=== PATIENT | female | born 1950 | race Caucasian/White ===

== ENCOUNTER 2018-10-06 11:54 | Inpatient (IN) | payer MEDICARE, OTHER, MEDICAID ==
[2018-10-06 12:50] LABS: ADD MAN DIFF? NO
[2018-10-06 13:02] LABS: WHITE BLOOD COUNT 12.8 10^3/ul (4.8-10.8)
[2018-10-06 13:02] LABS: BASOPHIL # 0.1 10^3/ul (0.0-0.1); BASOPHILS % 0.5 % (0.0-2.0); EOSINOPHILS # 0.1 10^3/ul (0.0-0.5); EOSINOPHILS % 0.9 % (0.0-7.0); HEMATOCRIT 38.2 % (37.0-47.0); HEMOGLOBIN 12.4 g/dl (12.0-16.0); LYMPHOCYTES # 1.6 10^3/ul (0.8-2.9); LYMPHOCYTES % 12.7 % (15.0-51.0); MEAN CORPUSCULAR HEMOGLOBIN 32.7 pg (29.0-33.0); MEAN CORPUSCULAR HGB CONC 32.5 g/dl (32.0-37.0); MEAN CORPUSCULAR VOLUME 100.8 fl (82.0-101.0); MONOCYTE # 1.2 10^3/ul (0.3-0.9); MONOCYTES % 9.1 % (0.0-11.0); NEUTROPHIL # 9.8 10^3/ul (1.6-7.5); NEUTROPHILS % 76.5 % (39.0-77.0); PLATELET COUNT 223 10^3/UL (140-415); RED BLOOD COUNT 3.79 10^6/ul (4.20-5.40); RED CELL DISTRIBUTION WIDTH 13.2 % (11.5-14.5)
[2018-10-06 13:06] LABS: ADD UMIC YES; UR AMORPHOUS CRYSTAL FEW /HPF (NONE SEEN); UR ASCORBIC ACID NEGATIVE (NEGATIVE); UR BACTERIA FEW /HPF (NONE SEEN); UR BILIRUBIN (Dip) NEGATIVE (NEGATIVE); UR BLOOD (Dip) 2+ mg/dL (NEGATIVE); UR CLARITY CLOUDY (CLEAR); UR COLOR YELLOW (YELLOW); UR GLUCOSE (Dip) NEGATIVE (NEGATIVE); UR KETONES (Dip) NEGATIVE (NEGATIVE); UR LEUKOCYTE ESTERASE (Dip) 3+ Leu/ul (NEGATIVE); UR NITRITE (Dip) POSITIVE (NEGATIVE); UR RBC 18 /HPF (0-5); UR SPECIFIC GRAVITY (Dip) 1.011 (1.003-1.030); UR TOTAL PROTEIN (Dip) NEGATIVE (NEGATIVE); UR UROBILINOGEN (Dip) NEGATIVE (NEGATIVE); UR WBC 41 /HPF (0-5)
[2018-10-06 13:17] LABS: ANION GAP 13 (5-13); BLOOD UREA NITROGEN 10 mg/dl (7-20); CALCIUM 9.4 mg/dl (8.4-10.2); CARBON DIOXIDE 27 mmol/L (21-31); CHLORIDE 93 mmol/L (97-110); Estimated GFR > 60 mL/min (>60); GLUCOSE 106 mg/dl (70-220); POTASSIUM 4.6 mmol/L (3.5-5.1); SODIUM 133 mmol/L (135-144)
[2018-10-06] MEDS: CEFTRIAXONE 1 GM/50 ML (PMX) 50 ML IVPB (14:28)
[2018-10-06] MEDS ORDERED: ACETAMINOPHEN 325 MG TAB PO ×2 (14:30→18:00)
[2018-10-06] MEDS ORDERED: ONDANSETRON 4 MG INJ IV (14:30)
[2018-10-06] MEDS: VANCOMYCIN 1 GM (PMX) 250 ML IVPB (15:48)
[2018-10-06] MEDS ORDERED: morphine 4 MG/ML VIAL IV (18:00)
[2018-10-06] MEDS ORDERED: TIZANIDINE 4 MG TAB PO (18:00)
[2018-10-06] MEDS ORDERED: AL HYDROX/MG HYDROX/SIMETH 30 ML CUP PO (18:00)
[2018-10-06] MEDS ORDERED: NACL 0.9% 3 ML SYG IV (18:00)
[2018-10-06] MEDS ORDERED: DOCUSATE SODIUM 100 MG CAP PO (18:00)
[2018-10-06] MEDS ORDERED: VANCOMYCIN IV PER PHARMACY XX (18:00)
[2018-10-06] MEDS ORDERED: ZOLPIDEM 5 MG TAB PO (18:00)
[2018-10-06] MEDS ORDERED: CRANBERRY EXTRACT 450 MG PO (21:00)
[2018-10-06] MEDS ORDERED: LIFITEGRAST OP (21:00)
[2018-10-06] MEDS: SOD CHLORIDE 0.9% 1,000 ML IV (21:01)
[2018-10-06] MEDS: traZODone 50 MG TAB PO (21:03)
[2018-10-06] MEDS: PRIMIDONE 250 MG TAB PO (21:03)
[2018-10-06] MEDS: DICYCLOMINE 10 MG CAP PO (21:03)
[2018-10-06] MEDS: SODIUM CHLORIDE 1 GM TAB PO (21:03)
[2018-10-06] MEDS: METOPROLOL 50 MG TAB PO (21:04)
[2018-10-06] MEDS: GABAPENTIN 400 MG CAP PO (21:04)
[2018-10-06] MEDS: HEPARIN 5,000 UNIT/1 ML VIAL SC (21:12)
[2018-10-06] MEDS: LATANOPROST 0.005% 2.5 ML OPH BOTH EYES (21:14)
[2018-10-06] MEDS: ACETAMINOPHEN 325 MG TAB PO (21:17)
[2018-10-07] MEDS: ACETAMINOPHEN 325 MG TAB PO ×3 (03:53→17:51)
[2018-10-07 05:27] LABS: ADD MAN DIFF? NO
[2018-10-07 05:37] LABS: BASOPHIL # 0.1 10^3/ul (0.0-0.1); BASOPHILS % 0.6 % (0.0-2.0); EOSINOPHILS # 0.1 10^3/ul (0.0-0.5); EOSINOPHILS % 1.4 % (0.0-7.0); HEMATOCRIT 32.3 % (37.0-47.0); HEMOGLOBIN 10.8 g/dl (12.0-16.0); LYMPHOCYTES # 2.1 10^3/ul (0.8-2.9); LYMPHOCYTES % 25.3 % (15.0-51.0); MEAN CORPUSCULAR HEMOGLOBIN 32.8 pg (29.0-33.0); MEAN CORPUSCULAR HGB CONC 33.4 g/dl (32.0-37.0); MEAN CORPUSCULAR VOLUME 98.2 fl (82.0-101.0); MEAN PLATELET VOLUME 9.1 fl (7.4-10.4); MONOCYTE # 0.8 10^3/ul (0.3-0.9); MONOCYTES % 10.1 % (0.0-11.0); NEUTROPHIL # 5.1 10^3/ul (1.6-7.5); NEUTROPHILS % 62.4 % (39.0-77.0); PLATELET COUNT 232 10^3/UL (140-415); RED BLOOD COUNT 3.29 10^6/ul (4.20-5.40); RED CELL DISTRIBUTION WIDTH 13.2 % (11.5-14.5)
[2018-10-07 05:37] LABS: WHITE BLOOD COUNT 8.1 10^3/ul (4.8-10.8)
[2018-10-07 06:13] LABS: ANION GAP 12 (5-13); BLOOD UREA NITROGEN 10 mg/dl (7-20); CALCIUM 8.8 mg/dl (8.4-10.2); CARBON DIOXIDE 29 mmol/L (21-31); CHLORIDE 94 mmol/L (97-110); CREATININE 0.28 mg/dl (0.44-1.00); Estimated GFR > 60 mL/min (>60); GLUCOSE 110 mg/dl (70-220); MAGNESIUM 1.7 mg/dl (1.7-2.5); PHOSPHORUS 3.2 mg/dl (2.5-4.9); POTASSIUM 3.6 mmol/L (3.5-5.1); SODIUM 135 mmol/L (135-144)
[2018-10-07 07:23] LABS: HEMOGLOBIN A1C 5.2 % (0-5.9)
[2018-10-07] MEDS: VANCOMYCIN 1 GM 250 ML IVPB (09:55)
[2018-10-07] MEDS: MULTIVITAMINS THERAPEUTIC TAB PO (09:56)
[2018-10-07] MEDS: PRIMIDONE 250 MG TAB PO ×2 (09:56→21:07)
[2018-10-07] MEDS: ZINC SULFATE 220 MG CAP PO (09:56)
[2018-10-07] MEDS: SODIUM CHLORIDE 1 GM TAB PO ×2 (09:56→21:07)
[2018-10-07] MEDS: ASCORBIC ACID 500 MG TAB PO (09:56)
[2018-10-07] MEDS: DICYCLOMINE 10 MG CAP PO ×2 (09:56→21:07)
[2018-10-07] MEDS: METOCLOPRAMIDE 5 MG TAB PO ×3 (09:56→17:48)
[2018-10-07] MEDS: BUSPIRONE 5 MG TAB PO (09:56)
[2018-10-07] MEDS: GABAPENTIN 400 MG CAP PO ×3 (09:56→21:06)
[2018-10-07] MEDS: HEPARIN 5,000 UNIT/1 ML VIAL SC ×2 (09:58→21:09)
[2018-10-07] MEDS: PANTOPRAZOLE (EC) 40 MG TAB PO (10:02)
[2018-10-07] MEDS: CALCIUM CARBONATE 1.25 GM TAB PO (10:02)
[2018-10-07] MEDS: METOPROLOL 50 MG TAB PO ×2 (10:03→21:07)
[2018-10-07] MEDS: SOD CHLORIDE 0.9% 1,000 ML IV (10:03)
[2018-10-07] MEDS: CEFTRIAXONE 1 GM/50 ML (PMX) 50 ML IVPB (14:59)
[2018-10-07] MEDS: SODIUM HYPOCHLORITE (1/40) 1 APPLIC BTL IRR ×2 (14:59→21:08)
[2018-10-07] MEDS: CEFEPIME 1GM/50 ML (PMX) 50 ML IVPB (21:06)
[2018-10-07] MEDS: traZODone 50 MG TAB PO (21:06)
[2018-10-07] MEDS: LATANOPROST 0.005% 2.5 ML OPH BOTH EYES (21:07)
[2018-10-08] MEDS: SOD CHLORIDE 0.9% 1,000 ML IV ×2 (02:12→22:01)
[2018-10-08] MEDS: ACETAMINOPHEN 325 MG TAB PO (02:12)
[2018-10-08] MEDS: morphine LIQ (10 MG/5 ML) CUP PO ×3 (04:18→21:25)
[2018-10-08] MEDS: DICYCLOMINE 10 MG CAP PO ×2 (08:39→21:23)
[2018-10-08] MEDS: SODIUM CHLORIDE 1 GM TAB PO ×2 (08:39→21:23)
[2018-10-08] MEDS: GABAPENTIN 400 MG CAP PO ×3 (08:39→21:24)
[2018-10-08] MEDS: METOCLOPRAMIDE 5 MG TAB PO ×3 (08:40→17:06)
[2018-10-08] MEDS: ASCORBIC ACID 500 MG TAB PO (08:40)
[2018-10-08] MEDS: BUSPIRONE 5 MG TAB PO (08:40)
[2018-10-08] MEDS: MULTIVITAMINS THERAPEUTIC TAB PO (08:40)
[2018-10-08] MEDS: METOPROLOL 50 MG TAB PO ×2 (08:40→21:33)
[2018-10-08] MEDS: CALCIUM CARBONATE 1.25 GM TAB PO (08:40)
[2018-10-08] MEDS: PRIMIDONE 250 MG TAB PO ×2 (08:40→21:33)
[2018-10-08] MEDS: ZINC SULFATE 220 MG CAP PO (08:40)
[2018-10-08] MEDS: SODIUM HYPOCHLORITE (1/40) 1 APPLIC BTL IRR ×2 (08:42→21:34)
[2018-10-08] MEDS: PANTOPRAZOLE (EC) 40 MG TAB PO (08:42)
[2018-10-08] MEDS: ONDANSETRON 4 MG INJ IV (09:26)
[2018-10-08] MEDS: CEFEPIME 1GM/50 ML (PMX) 50 ML IVPB ×2 (09:26→21:22)
[2018-10-08] MEDS: HEPARIN 5,000 UNIT/1 ML VIAL SC ×2 (09:27→21:38)
[2018-10-08] MEDS: VANCOMYCIN 1 GM 250 ML IVPB (10:28)
[2018-10-08] MEDS: SILVER NITRATE SWAB TOP (12:40)
[2018-10-08] MEDS: LIDOCAINE 2%/EPI (MDV) 20ML INJ INJ (12:40)
[2018-10-08] MEDS: traZODone 50 MG TAB PO (21:23)
[2018-10-09] MEDS: LATANOPROST 0.005% 2.5 ML OPH BOTH EYES ×2 (00:07→20:47)
[2018-10-09] MEDS: morphine LIQ (10 MG/5 ML) CUP PO ×5 (01:28→20:55)
[2018-10-09] MEDS: ONDANSETRON 4 MG INJ IV ×2 (02:46→10:48)
[2018-10-09 06:05] LABS: ADD MAN DIFF? NO
[2018-10-09 06:13] LABS: BASOPHILS % 0.7 % (0.0-2.0); EOSINOPHILS # 0.2 10^3/ul (0.0-0.5); EOSINOPHILS % 4.1 % (0.0-7.0); HEMATOCRIT 30.1 % (37.0-47.0); LYMPHOCYTES # 1.4 10^3/ul (0.8-2.9); LYMPHOCYTES % 24.3 % (15.0-51.0); MEAN CORPUSCULAR HEMOGLOBIN 32.7 pg (29.0-33.0); MEAN CORPUSCULAR HGB CONC 33.2 g/dl (32.0-37.0); MEAN CORPUSCULAR VOLUME 98.4 fl (82.0-101.0); MEAN PLATELET VOLUME 8.8 fl (7.4-10.4); MONOCYTE # 0.6 10^3/ul (0.3-0.9); MONOCYTES % 10.2 % (0.0-11.0); NEUTROPHIL # 3.4 10^3/ul (1.6-7.5); NEUTROPHILS % 60.3 % (39.0-77.0); PLATELET COUNT 223 10^3/UL (140-415); RED BLOOD COUNT 3.06 10^6/ul (4.20-5.40)
[2018-10-09 06:13] LABS: WHITE BLOOD COUNT 5.7 10^3/ul (4.8-10.8)
[2018-10-09] MEDS: METOCLOPRAMIDE 5 MG TAB PO ×3 (06:13→17:22)
[2018-10-09] MEDS: PANTOPRAZOLE (EC) 40 MG TAB PO (06:14)
[2018-10-09 06:35] LABS: ANION GAP 2 (5-13); BLOOD UREA NITROGEN 4 mg/dl (7-20); CALCIUM 8.7 mg/dl (8.4-10.2); CARBON DIOXIDE 27 mmol/L (21-31); CHLORIDE 107 mmol/L (97-110); CREATININE 0.29 mg/dl (0.44-1.00); Estimated GFR > 60 mL/min (>60); GLUCOSE 112 mg/dl (70-220); POTASSIUM 3.8 mmol/L (3.5-5.1); SODIUM 136 mmol/L (135-144)
[2018-10-09] MEDS: GABAPENTIN 400 MG CAP PO ×3 (08:40→20:48)
[2018-10-09] MEDS: DICYCLOMINE 10 MG CAP PO ×2 (08:40→20:47)
[2018-10-09] MEDS: CEFEPIME 1GM/50 ML (PMX) 50 ML IVPB ×2 (08:40→20:48)
[2018-10-09] MEDS: SODIUM CHLORIDE 1 GM TAB PO ×2 (08:40→20:48)
[2018-10-09] MEDS: METOPROLOL 50 MG TAB PO ×2 (08:40→20:49)
[2018-10-09] MEDS: PRIMIDONE 250 MG TAB PO ×2 (08:40→20:48)
[2018-10-09] MEDS: BUSPIRONE 5 MG TAB PO (08:40)
[2018-10-09] MEDS: HEPARIN 5,000 UNIT/1 ML VIAL SC ×2 (08:43→20:52)
[2018-10-09 10:14] LABS: VANCOMYCIN,TROUGH 6.6 ug/ml (10.0-20.0)
[2018-10-09] MEDS: VANCOMYCIN 1 GM 250 ML IVPB (10:36)
[2018-10-09] MEDS: MULTIVITAMINS THERAPEUTIC TAB PO (12:31)
[2018-10-09] MEDS: ASCORBIC ACID 500 MG TAB PO (12:31)
[2018-10-09] MEDS: CALCIUM CARBONATE 1.25 GM TAB PO (12:31)
[2018-10-09] MEDS: ZINC SULFATE 220 MG CAP PO (12:31)
[2018-10-09] MEDS: SOD CHLORIDE 0.9% 1,000 ML IV ×2 (12:34→17:28)
[2018-10-09] MEDS: SODIUM HYPOCHLORITE (1/40) 1 APPLIC BTL IRR ×2 (13:06→20:55)
[2018-10-09] MEDS: DOXYCYCLINE 100 MG TAB PO ×2 (17:22→23:31)
[2018-10-09] MEDS: HYDROCODONE/APAP (5/325) TAB PO (17:24)
[2018-10-09] MEDS: traZODone 50 MG TAB PO (20:47)
[2018-10-09] MEDS ORDERED: VANCOMYCIN 750 MG (PMX) 250 ML IVPB (22:00)
[2018-10-10] MEDS: morphine LIQ (10 MG/5 ML) CUP PO ×5 (02:16→19:56)
[2018-10-10] MEDS: ONDANSETRON 4 MG INJ IV ×2 (02:32→20:04)
[2018-10-10] MEDS: METOCLOPRAMIDE 5 MG TAB PO ×3 (06:16→17:33)
[2018-10-10] MEDS: PANTOPRAZOLE (EC) 40 MG TAB PO (06:16)
[2018-10-10] MEDS: DOXYCYCLINE 100 MG TAB PO ×2 (08:34→21:16)
[2018-10-10] MEDS: HEPARIN 5,000 UNIT/1 ML VIAL SC ×2 (08:34→21:18)
[2018-10-10] MEDS: SODIUM CHLORIDE 1 GM TAB PO ×2 (08:34→21:16)
[2018-10-10] MEDS: MULTIVITAMINS THERAPEUTIC TAB PO (08:34)
[2018-10-10] MEDS: PRIMIDONE 250 MG TAB PO ×2 (08:34→21:16)
[2018-10-10] MEDS: ZINC SULFATE 220 MG CAP PO (08:34)
[2018-10-10] MEDS: CALCIUM CARBONATE 1.25 GM TAB PO (08:35)
[2018-10-10] MEDS: BUSPIRONE 5 MG TAB PO (08:35)
[2018-10-10] MEDS: CEFEPIME 1GM/50 ML (PMX) 50 ML IVPB ×2 (08:35→21:17)
[2018-10-10] MEDS: GABAPENTIN 400 MG CAP PO ×3 (08:35→21:15)
[2018-10-10] MEDS: METOPROLOL 50 MG TAB PO ×2 (08:35→19:57)
[2018-10-10] MEDS: DICYCLOMINE 10 MG CAP PO ×2 (08:35→21:16)
[2018-10-10] MEDS: ASCORBIC ACID 500 MG TAB PO (08:36)
[2018-10-10] MEDS: SODIUM HYPOCHLORITE (1/40) 1 APPLIC BTL IRR ×2 (08:36→19:37)
[2018-10-10] MEDS: SOD CHLORIDE 0.9% 1,000 ML IV (12:18)
[2018-10-10] MEDS: LATANOPROST 0.005% 2.5 ML OPH BOTH EYES (19:57)
[2018-10-10] MEDS: traZODone 50 MG TAB PO (21:16)
[2018-10-10] MEDS: traMADol 50 MG TAB PO (21:43)
[2018-10-10] MEDS: HYDROCODONE/APAP (5/325) TAB PO (23:27)
[2018-10-11] MEDS: morphine LIQ (10 MG/5 ML) CUP PO ×4 (00:22→20:31)
[2018-10-11] MEDS: ONDANSETRON 4 MG INJ IV (05:48)
[2018-10-11] MEDS: PANTOPRAZOLE (EC) 40 MG TAB PO (05:50)
[2018-10-11] MEDS: SODIUM HYPOCHLORITE (1/40) 1 APPLIC BTL IRR ×3 (06:02→20:35)
[2018-10-11] MEDS: SOD CHLORIDE 0.9% 1,000 ML IV ×2 (06:03→14:11)
[2018-10-11] MEDS: MULTIVITAMINS THERAPEUTIC TAB PO (10:50)
[2018-10-11] MEDS: ASCORBIC ACID 500 MG TAB PO (10:50)
[2018-10-11] MEDS: METOCLOPRAMIDE 5 MG TAB PO ×3 (10:51→19:00)
[2018-10-11] MEDS: HYDROCODONE/APAP (5/325) TAB PO ×2 (10:51→19:00)
[2018-10-11] MEDS: CEFEPIME 1GM/50 ML (PMX) 50 ML IVPB ×2 (10:51→20:32)
[2018-10-11] MEDS: DOXYCYCLINE 100 MG TAB PO ×2 (10:51→20:32)
[2018-10-11] MEDS: BUSPIRONE 5 MG TAB PO (10:51)
[2018-10-11] MEDS: CALCIUM CARBONATE 1.25 GM TAB PO (10:51)
[2018-10-11] MEDS: SODIUM CHLORIDE 1 GM TAB PO ×2 (10:52→20:37)
[2018-10-11] MEDS: ZINC SULFATE 220 MG CAP PO (10:52)
[2018-10-11] MEDS: GABAPENTIN 400 MG CAP PO ×3 (10:52→20:32)
[2018-10-11] MEDS: DICYCLOMINE 10 MG CAP PO ×2 (10:52→20:32)
[2018-10-11] MEDS: PRIMIDONE 250 MG TAB PO ×2 (10:53→20:38)
[2018-10-11] MEDS: METOPROLOL 50 MG TAB PO ×2 (10:53→20:33)
[2018-10-11] MEDS: HEPARIN 5,000 UNIT/1 ML VIAL SC ×2 (11:09→20:35)
[2018-10-11] MEDS ORDERED: CEPHALEXIN 500 MG CAP PO (14:00)
[2018-10-11] MEDS: traZODone 50 MG TAB PO (20:32)
[2018-10-11] MEDS: LATANOPROST 0.005% 2.5 ML OPH BOTH EYES (20:33)
[2018-10-12] MEDS: METOCLOPRAMIDE 5 MG TAB PO ×3 (06:59→18:09)
[2018-10-12] MEDS: PANTOPRAZOLE (EC) 40 MG TAB PO (06:59)
[2018-10-12] MEDS: SOD CHLORIDE 0.9% 1,000 ML IV (06:59)
[2018-10-12] MEDS: morphine LIQ (10 MG/5 ML) CUP PO ×4 (07:00→21:29)
[2018-10-12] MEDS: BUSPIRONE 5 MG TAB PO (08:55)
[2018-10-12] MEDS: GABAPENTIN 400 MG CAP PO ×3 (08:55→21:20)
[2018-10-12] MEDS: ASCORBIC ACID 500 MG TAB PO (08:55)
[2018-10-12] MEDS: CALCIUM CARBONATE 1.25 GM TAB PO (08:55)
[2018-10-12] MEDS: ZINC SULFATE 220 MG CAP PO (08:55)
[2018-10-12] MEDS: DICYCLOMINE 10 MG CAP PO ×2 (08:55→21:22)
[2018-10-12] MEDS: MULTIVITAMINS THERAPEUTIC TAB PO (08:56)
[2018-10-12] MEDS: SODIUM CHLORIDE 1 GM TAB PO ×2 (08:56→21:20)
[2018-10-12] MEDS: HYDROCODONE/APAP (5/325) TAB PO (08:56)
[2018-10-12] MEDS: METOPROLOL 50 MG TAB PO ×2 (08:56→21:22)
[2018-10-12] MEDS: PRIMIDONE 250 MG TAB PO ×2 (08:56→21:20)
[2018-10-12] MEDS: DOXYCYCLINE 100 MG TAB PO ×2 (08:56→21:20)
[2018-10-12] MEDS: HEPARIN 5,000 UNIT/1 ML VIAL SC ×2 (09:05→21:23)
[2018-10-12] MEDS: CEFEPIME 1GM/50 ML (PMX) 50 ML IVPB ×2 (09:07→21:19)
[2018-10-12] MEDS: SODIUM HYPOCHLORITE (1/40) 1 APPLIC BTL IRR ×2 (09:20→21:34)
[2018-10-12] MEDS: ONDANSETRON 4 MG INJ IV (16:12)
[2018-10-12] MEDS: traZODone 50 MG TAB PO (21:20)
[2018-10-12] MEDS: LATANOPROST 0.005% 2.5 ML OPH BOTH EYES (21:20)
[2018-10-13] MEDS: SOD CHLORIDE 0.9% 1,000 ML IV ×2 (03:17→16:34)
[2018-10-13] MEDS: morphine LIQ (10 MG/5 ML) CUP PO (10:01)
[2018-10-13] MEDS: PANTOPRAZOLE (EC) 40 MG TAB PO (10:05)
[2018-10-13] MEDS: SODIUM HYPOCHLORITE (1/40) 1 APPLIC BTL IRR (10:05)
[2018-10-13] MEDS: CEFEPIME 1GM/50 ML (PMX) 50 ML IVPB (10:05)
[2018-10-13] MEDS: METOCLOPRAMIDE 5 MG TAB PO ×3 (10:05→19:10)
[2018-10-13] MEDS: DICYCLOMINE 10 MG CAP PO (10:06)
[2018-10-13] MEDS: BUSPIRONE 5 MG TAB PO (10:06)
[2018-10-13] MEDS: SODIUM CHLORIDE 1 GM TAB PO (10:07)
[2018-10-13] MEDS: CALCIUM CARBONATE 1.25 GM TAB PO (10:07)
[2018-10-13] MEDS: METOPROLOL 50 MG TAB PO (10:07)
[2018-10-13] MEDS: MULTIVITAMINS THERAPEUTIC TAB PO (10:07)
[2018-10-13] MEDS: PRIMIDONE 250 MG TAB PO (10:07)
[2018-10-13] MEDS: GABAPENTIN 400 MG CAP PO ×2 (10:07→13:43)
[2018-10-13] MEDS: ZINC SULFATE 220 MG CAP PO (10:08)
[2018-10-13] MEDS: DOXYCYCLINE 100 MG TAB PO (10:08)
[2018-10-13] MEDS: ASCORBIC ACID 500 MG TAB PO (10:08)
[2018-10-13] MEDS: HEPARIN 5,000 UNIT/1 ML VIAL SC (10:09)
[2018-10-13] MEDS: COLLAGENASE 5 GM (UD JAR) TOP (13:50)
== END 2018-10-13 21:40 | DRG 853 ==
LOC: E/R 11:54 → PP2 14:10
PROC: 0KBN0ZZ Excision of Right Hip Muscle, Open Approach (ICD-10-PCS; principal; 2018-10-08)
DX: A41.9 Sepsis, unspecified organism (principal); L89.214 Pressure ulcer of right hip, stage 4; R53.2 Functional quadriplegia; M86.8X8 Other osteomyelitis, other site; N39.0 Urinary tract infection, site not specified; I10 Essential (primary) hypertension; G35 Multiple sclerosis; F32.9 Major depressive disorder, single episode, unspecified; F03.90 Unspecified dementia, unspecified severity, without behavioral disturbance, psychotic disturbance, mood disturbance, and anxiety; Z86.718 Personal history of other venous thrombosis and embolism; G40.909 Epilepsy, unspecified, not intractable, without status epilepticus; M81.0 Age-related osteoporosis without current pathological fracture; Z93.3 Colostomy status; G56.00 Carpal tunnel syndrome, unspecified upper limb; R13.10 Dysphagia, unspecified; D64.9 Anemia, unspecified; N31.9 Neuromuscular dysfunction of bladder, unspecified; Z96.0 Presence of urogenital implants
CPT/HCPCS: 36415; 80048; 80202; 81001; 83036; 83735; 84100; 85025; 87070; 87081; 87086; 99285-25